=== PATIENT | female | born 1960 | race Hispanic/Latino ===

== ENCOUNTER 2016-10-21 13:25 | Emergency (ER) | payer MEDICARE ==
--- NOTE | 2016-10-21 14:13 | ED.PDOC ---
History of Present Illness - General Chief Complaint: Upper Extremity Injury Stated Complaint: Nubmness and weakness of R arm Time Seen by Provider: 10/21/16 13:48 Source: patient, RN notes reviewed, Vital Signs reviewed Exam Limitations: no limitations - History of Present Illness Initial Comments: Patient reports over the past month she has been having progressively worsening numbness and weakness in her whole Right arm. She is unable to lift her arm and even when she does lift it with her left arm helping she gets pain in her superior shoulder. Denies trauma or injury. Occurred: other - 1 month ago Pain - Upper Extremity: moderate: Shoulder, right, Upper arm, right, Forearm, right, Wrist, right, Hand, right Method of Injury: unknown Improving Factors: nothing Worsening Factors: movement Allergies/Adverse Reactions: Allergies NO KNOWN ALLERGY Allergy (Verified 10/21/16 14:27) Home Medications: Ambulatory Orders Escitalopram [Lexapro] 10 mg PO BEDTIME 12/30/15 Gabapentin [Neurontin] 300 mg PO TID 12/30/15 Promethazine Tab [Phenergan Tablet] 25 mg PO Q6HR PRN #8 tab 12/30/15 Ynbvvtzezloer-Oqyr-Sxlpykvyfo [Fioricet] 1 ea PO Q8H PRN #21 tab 01/23/16 Gabapentin [Neurontin] 300 mg PO Q8HRS #30 cap 10/21/16 Review of Systems - Review of Systems Constitutional: States: no symptoms reported EENTM: States: no symptoms reported Respiratory: States: no symptoms reported Cardiology: States: no symptoms reported Gastrointestinal/Abdominal: States: no symptoms reported Musculoskeletal: States: see HPI Skin: States: no symptoms reported Neurological: States: see HPI, numbness - R upper extremity, weakness - R upper extremity Past Medical History (General) - Patient Medical History Hx Seizures: No Hx Stroke: No Hx Dementia: No Hx Asthma: No Hx of COPD: No Hx Cardiac Disorders: No Hx Congestive Heart Failure: No Hx Pacemaker: No Hx Hypertension: Yes Hx Thyroid Disease: No Hx Diabetes: No - borderline Hx Gastroesophageal Reflux: No Hx Renal Disease: Yes - stones Hx Cancer: No Hx of HIV: No Hx Hepatitis C: No Hx MRSA: No - Vaccination History Hx Influenza Vaccination: Yes - Social History Hx Tobacco Use: Yes Hx Alcohol Use: No Hx Substance Use: No Hx Substance Use Treatment: No Hx Depression: No - Female History Patient : No Family Medical History - Family History Father Living Status: Cause of : cad /mi age 76 Hx Family Asthma: No Hx Family Congestive Heart Failure: No Hx Family Hypertension: Yes Hx Family Stroke: No Hx Cardiac Disease: Yes Hx Family Diabetes: No Hx Family Cancer: No Mother Family History: No Known Living Status: Hx Family Hypertension: Yes Hx Cardiac Disease: Yes Hx Family Diabetes: Yes Hx Family Cancer: Yes - breast Physical Exam - Physical Exam General Appearance: Alert, Comfortable, No apparent distress, Well Developed, Well Groomed, Well Hydrated, Well Nourished Neck: non-tender, full range of motion, supple, normal inspection Shoulder Exam: no evidence of injury, limited ROM - due to weakness on active movement, FROM with assisted movement. 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 Copy, Patient Portal Self Enrollment Instructions: DI for Cervical Radiculopathy Diet: resume usual diet Activity: increase activity as tolerated Referrals: SHELLY CARVER [Primary Care Provider] - 1-5 Days Prescriptions: Gabapentin [Neurontin] 300 mg PO Q8HRS #30 cap Home Medications: Ambulatory Orders Escitalopram [Lexapro] 10 mg PO BEDTIME 12/30/15 Gabapentin [Neurontin] 300 mg PO TID 12/30/15 Promethazine Tab [Phenergan Tablet] 25 mg PO Q6HR PRN #8 tab 12/30/15 Myxxhdumfdnmv-Zhda-Dywiuspjte [Fioricet] 1 ea PO Q8H PRN #21 tab 01/23/16 Gabapentin [Neurontin] 300 mg PO Q8HRS #30 cap 10/21/16 Additional Instructions: Needs EMG of RUE and MRI of C-spine
[2016-10-21 14:27] VITALS: TEMP 99.2
--- NOTE | 2016-10-21 15:55 | RAD ---
PROCEDURE: Cervical Spine,3 Views Clinical History: R arm pain neuropathy Indication: Same as above Comparison: None . Technique: 2.0 views of the cervical spine were done. Findings: There is no loss of vertebral body height. There is reduction in the intervertebral disc space height at C4/C5 level with mild anterior and posterior osteophyte formation seen at this level The prevertebral soft tissues appear unremarkable. The bone mineralization is normal for patient's age and sex. The posterior elements are normal. The craniovertebral junction, tip of the odontoid process, C1/C2 alignment and the C7/T1 interface is intact. The laryngotracheal airway is widely patent. The adjacent soft tissues are radiographically unremarkable. There is no visualization of any radiopaque foreign bodies in the soft tissues. Impression: There is reduction in the intervertebral disc space height at C4/C5 level with mild anterior and posterior osteophyte formation seen at this level Place of interpretation: [id number]. Electronically signed by: Joss Moore MD 10/21/2016 3:54 PM CDT
[2016-10-21] MEDS ORDERED: HYDROcodone 7.5MG/APAP 325MG 1 EA TAB PO ONE (15:56)
--- NOTE | 2016-10-21 16:12 | RAD ---
EXAM DESCRIPTION: Shoulder,Right 2 or More Views CLINICAL HISTORY: R arm pain neuropathy COMPARISON: None FINDINGS: Two views of the right shoulder were submitted. There is no discrete acute fracture or dislocation. Bone mineralization is within normal limits. There is no radiopaque foreign body material IMPRESSION: No acute fracture or dislocation. Electronically signed by: Zana Carpenter MD 10/21/2016 4:11 PM CDT
[2016-10-21 16:31] VITALS: BP 145/93; O2SAT 95
== END 2016-10-21 16:31 | disposition home or self-care (01) ==
LOC: ER 13:25
DX: M54.12 Radiculopathy, cervical region (principal); I10 Essential (primary) hypertension; Z87.442 Personal history of urinary calculi; Z87.891 Personal history of nicotine dependence; Z82.49 Family history of ischemic heart disease and other diseases of the circulatory system; Z79.899 Other long term (current) drug therapy

== ENCOUNTER → 2016-11-08 | Outpatient (CLI) | payer MEDICARE | LOC: LAB.O 10:19 | PROVIDERS: ATTEND Emergency Medicine | DX: I10 Essential (primary) hypertension (principal); R73.9 Hyperglycemia, unspecified; Z13.1 Encounter for screening for diabetes mellitus; Z13.220 Encounter for screening for lipoid disorders ==

== ENCOUNTER → 2016-11-28 | Outpatient (CLI) | payer MEDICARE ==
--- NOTE | 2016-11-29 05:23 | US ---
Procedure: US CAROTID DOPPLER BILATERAL Exam Date: 11/28/2016 Ordering Provider: SHELLY CARVER Clinical Indication: ESSENTIAL (PRIMARY) HYPERTENSION Comparison: None TECHNIQUE : Real-time cerebrovascular ultrasonography was obtained from sternal notch to the angle of the mandible bilaterally utilizing roy scale, color flow and spectral Doppler analysis. Systolic velocity ratios were calculated for internal carotid artery to common carotid artery bilaterally. FINDINGS: RIGHT CAROTID BIFURCATION: No significant atherosclerotic plaque. Peak systolic and end-diastolic velocities in the right internal carotid artery are 76 and 12 cm/s. Internal carotid/common carotid ratio is 0.9. Right vertebral flow is antegrade. LEFT CAROTID BIFURCATION: No significant atherosclerotic plaque. Peak systolic and end-diastolic velocities in the left internal carotid artery are 64 and 11 cm/s. Internal carotid/common carotid ratio is 0.8. Left vertebral flow is antegrade. IMPRESSION: 1. No significant atherosclerotic plaque in each carotid bulb and ICA origin. 2. There is no significant stenosis (less than 15%) at either ICA origin. 3. Bilateral antegrade vertebral artery flow. Electronically signed by: Bowen Serra MD 11/29/2016 5:23 AM CDT
--- NOTE | 2016-11-30 10:15 | MAM ---
History: Well woman exam. Date of exam: 11/28/2016 Services provided: Bilateral full field digital screening mammography. CAD, the images were reviewed with R2 computer aided detection. FINDINGS: Glandular tissue is scattered glandular pattern. No prior exam is currently available for comparison. Segmental microcalcifications right breast 1:00 approximately 6 cm from the nipple and extending approximately 2.9 cm throughout the breast are shown. No architectural distortion or dominant mass. No mammographic abnormality on the left. Suspected intramammary lymph node axillary right breast. IMPRESSION: Incomplete evaluation Recommendation: Additional views right breast with true lateral and spot compression magnification views. BIRAD CATEGORY: 0 INCOMPLETE - Need additional imaging evaluation and/or prior mammograms for comparison. Electronically signed by: Candelaria Santana MD 11/30/2016 10:14 AM CDT
== END ==
LOC: US 10:14
PROVIDERS: ATTEND Emergency Medicine
DX: Z12.31 Encounter for screening mammogram for malignant neoplasm of breast (principal); R20.2 Paresthesia of skin; I10 Essential (primary) hypertension; I77.1 Stricture of artery; R51 Headache; R42 Dizziness and giddiness
CPT/HCPCS: 93880; G0202

== ENCOUNTER 2017-03-06 06:58 | Emergency (ER) | payer MEDICARE ==
--- NOTE | 2017-03-06 07:12 | ED.PDOC ---
History of Present Illness - General Chief Complaint: General Stated Complaint: nausea/vomiting Time Seen by Provider: 03/06/17 07:12 Source: patient, RN notes reviewed Exam Limitations: no limitations - History of Present Illness Initial Comments: Karen Muhammad 56 y/o female stated that she had nausea /vomiting but no diarrhea for the last 5 days and unable to keep anything down.No ill contact , no foreign travel,no abdominal pain. Timing/Duration: other - 5 days Severity: moderate Improving Factors: nothing Worsening Factors: eating Associated Symptoms: denies symptoms Allergies/Adverse Reactions: Allergies NO KNOWN ALLERGY Allergy (Verified 10/21/16 14:27) Home Medications: Ambulatory Orders Gabapentin [Neurontin] 300 mg PO TID 12/30/15 Klonopin 03/06/17 Lisinopril 20 mg PO DAILY 03/06/17 Ondansetron [Ondansetron Odt] 8 mg PO TID PRN #10 tab 03/06/17 Ultram 03/06/17 Review of Systems - Review of Systems Constitutional: States: no symptoms reported EENTM: States: no symptoms reported Respiratory: States: cough, other - sneezing Cardiology: States: no symptoms reported Gastrointestinal/Abdominal: States: no symptoms reported Musculoskeletal: States: no symptoms reported Skin: States: no symptoms reported Neurological: States: no symptoms reported Endocrine: States: no symptoms reported Hematologic/Lymphatic: States: no symptoms reported Past Medical History (General) - Patient Medical History Hx Seizures: No Hx Stroke: No Hx Dementia: No Hx Asthma: No Hx of COPD: No Hx Cardiac Disorders: No Hx Congestive Heart Failure: No Hx Pacemaker: No Hx Hypertension: Yes Hx Thyroid Disease: No Hx Diabetes: No - borderline Hx Gastroesophageal Reflux: No Hx Renal Disease: Yes - stones Hx Cancer: No Hx of HIV: No Hx Hepatitis C: No Hx MRSA: No Surgical History: appendectomy, cholecystectomy, other - c -section.lumbar fusion - Vaccination History Hx Tetanus, Diphtheria Vaccination: No Hx Influenza Vaccination: Yes Hx Pneumococcal Vaccination: No - Social History Hx Tobacco Use: Yes Hx Alcohol Use: No Hx Substance Use: No Hx Substance Use Treatment: No Hx Depression: No - Activities of Daily Living Patient Lives Alone: No - family Grooming Ability: Independent Eating (Feeding) Ability: Independent Toileting Ability: Independent - Female History Patient : No Family Medical History - Family History Father Living Status: Cause of : cad /mi age 76 Hx Family Asthma: No Hx Family Congestive Heart Failure: No Hx Family Hypertension: Yes Hx Family Stroke: No Hx Cardiac Disease: Yes - parents Hx Family Diabetes: Yes - children Hx Family Cancer: Yes - brast-sisters Mother Family History: No Known Living Status: Hx Family Hypertension: Yes Hx Cardiac Disease: Yes Hx Family Diabetes: Yes Hx Family Cancer: Yes - breast Physical Exam - Physical Exam General Appearance: Alert, Comfortable, No apparent distress Eye Exam: bilateral normal Ears, Nose, Throat: hearing grossly normal, normal ENT inspection, normal pharynx Neck: non-tender, full range of motion, supple Respiratory: chest non-tender, lungs clear, normal breath sounds, no respiratory distress Cardiovascular/Chest: normal peripheral pulses, regular rate, rhythm, no edema, no gallop, no murmur Peripheral Pulses: radial,right: 1+, radial,left: 1+ Gastrointestinal/Abdominal: normal bowel sounds, non tender, soft, no organomegaly Back Exam: normal inspection, no vertebral tenderness Extremity: normal range of motion, non-tender, normal inspection Neurologic: no motor/sensory deficits, alert, normal mood/affect, oriented x 3 Skin Exam: normal color, warm/dry Lymphatic: no adenopathy Progress - Progress Progress: 03/06/17 07:30 Vital Signs - 8 hr 03/06/17 07:13 Temperature 95.9 F L Pulse Rate [ 97 H Right Brachial] Respiratory 20 Rate Blood Pressure 134/95 [Right Arm] O2 Sat by Pulse 95 Oximetry - Results/Orders Results/Orders: Laboratory Results - last 24 hr 03/06/17 03/06/17 03/06/17 07:29 07:29 08:16 WBC 6.6 RBC 5.30 Hgb 16.3 H Hct 48.8 H MCV 92.1 MCH 30.7 MCHC 33.4 RDW 13.2 Plt Count 227 MPV 8.8 Absolute Neuts (auto) 4.60 Absolute Lymphs (auto) 1.60 Absolute Monos (auto) 0.30 Absolute Eos (auto) 0.10 Absolute Basos (auto) 0.10 Neutrophils % 69.5 Lymphocytes % 24.0 Monocytes % 3.9 Eosinophils % 1.7 Basophils % 0.9 Sodium 141 Potassium 2.9 L Chloride 105 Carbon Dioxide 23 Anion Gap 15.9 BUN 15 Creatinine 0.66 BUN/Creatinine Ratio 22.7 H Random Glucose 176 H Serum Osmolality 286.4 Calcium 9.8 Total Bilirubin 0.8 AST 13 ALT 11 Alkaline Phosphatase 78 Serum Total Protein 8.0 Albumin 4.6 Globulin 3.4 Albumin/Globulin Ratio 1.4 Lipase 34 Urine Color Yellow Urine Appearance Clear Urine pH 7.0 Ur Specific [place] 1.015 Urine Protein Negative Urine Glucose (UA) Negative Urine Ketones 15 H Urine Blood Trace-intact H Urine Nitrite Negative Urine Bilirubin Negative Urine Urobilinogen 0.2 Ur Leukocyte Esterase Trace H Urine RBC 1-3 Urine WBC 0-1 Ur Epithelial Cells 0-1 Urine Bacteria Rare - EKG/XRAY/CT XRAY: abdomen - no acute abnormality;normal gas pttern Departure - Departure Clinical Impression: Nausea & vomiting Qualifiers: Vomiting type: unspecified Vomiting Intractability: unspecified Qualified Code( s): R11.2 - Nausea with vomiting, unspecified Time of Disposition: :31 Disposition: Discharge to Home or Self Care Condition: Good Instructions: Nausea and Vomiting-Adult Diet: bland diet, other - AVOID GREASY SPICY FOODS UNTIL BETTER;RETURN TO [facility] ROOM NEEDED Referrals: SHELLY CARVER [Primary Care Provider] - 1-2 Weeks Prescriptions: Ondansetron [Ondansetron Odt] 8 mg PO TID PRN #10 tab PRN Reason: Nausea Home Medications: Ambulatory Orders Gabapentin [Neurontin] 300 mg PO TID 12/30/15 Klonopin 03/06/17 Lisinopril 20 mg PO DAILY 03/06/17 Ondansetron [Ondansetron Odt] 8 mg PO TID PRN #10 tab 03/06/17 Ultram 03/06/17 Additional Instructions: RETURN TO EMERGENCY ROOM NEEDED;Follow up with primary md 03/07/2017 as needed call for appointment
[2017-03-06] MEDS ORDERED: LACTATED RINGERS 1,000 ML IVS ONE (07:13)
[2017-03-06] MEDS ORDERED: PROMETHAZINE HCL INJ 25 MG/ML VIAL IM ONE (07:37)
--- NOTE | 2017-03-06 08:21 | RAD ---
EXAM DESCRIPTION: Chest,1 View CLINICAL HISTORY: cough/sneezing FINDINGS/ IMPRESSION: Normal heart size. Mildly tortuous aorta. No edema, infiltrates or effusions. No acute bony abnormality Electronically signed by: Charlie Hendrickson MD 03/06/2017 8:20 AM CDT
--- NOTE | 2017-03-06 08:23 | RAD ---
EXAM DESCRIPTION: Abdomen, 2 views CLINICAL HISTORY: nausea/vomiting FINDINGS/ IMPRESSION: Bowel gas pattern normal. No evidence of pneumatosis or free intraperitoneal air No organomegaly or obvious abdominal mass lesion. Calcification overlies the upper abdomen, probably costochondral calcification. There are stimulator wires from previous lumbar spine fusion surgery Osteopenia without acute bony abnormality Electronically signed by: Chalrie Hendrickson MD 03/06/2017 8:22 AM CDT
[2017-03-06 08:30] VITALS: O2SAT 96
[2017-03-06 09:15] VITALS: BP 146/75; TEMP 97.6
== END 2017-03-06 09:46 | disposition home or self-care (01) ==
LOC: ER 06:58
DX: R11.2 Nausea with vomiting, unspecified (principal); I10 Essential (primary) hypertension; Z87.891 Personal history of nicotine dependence; Z87.442 Personal history of urinary calculi; Z79.899 Other long term (current) drug therapy
CPT/HCPCS: 36415; 71010; 74010; 80053; 81001; 83690; 85025; J2060; J2550; J7120

== ENCOUNTER → 2017-11-13 | Outpatient (CLI) | payer MEDICARE ==
--- NOTE | 2017-11-13 13:16 | RAD ---
EXAM DESCRIPTION: Chest,2 Views CLINICAL HISTORY: HYPERTENSION COMPARISON: March 06, 2017 TECHNIQUE: PA/lateral FINDINGS: The lungs are well expanded and clear. No infiltrates or effusions or masses are noted. The heart is normal in size and shape with no evidence of vascular congestion. The agapito and mediastinum demonstrate normal contours. The bony spine and chest wall is normal for age in appearance. IMPRESSION: Normal chest, two views Electronically signed by: Charlie Munoz MD 11/13/2017 1:15 PM CDT
== END | disposition home or self-care (01) ==
LOC: RAD 09:48
PROVIDERS: ATTEND Emergency Medicine
DX: I10 Essential (primary) hypertension (principal); Z13.220 Encounter for screening for lipoid disorders; F41.9 Anxiety disorder, unspecified; Z13.1 Encounter for screening for diabetes mellitus

== ENCOUNTER → 2017-12-05 | Outpatient (CLI) | payer MEDICARE ==
--- NOTE | 2017-12-05 16:28 | MAM ---
EXAM DESCRIPTION: 3D Screening BILATERAL : Digital Mammography. CLINICAL HISTORY: 56 years Female SCREENING . No complaints. Sister with breast cancer. Postmenopausal. No HRT. Did not return for diagnostic mammography follow-up of the right breast after BI-RADS Category 0 recommendation November 2016.. COMPARISON: 2-D digital screening bilateral study 11/28/2016. Report from prior examination also reviewed. TECHNIQUE: Bilateral CC and MLO projection full-field images, 3-D tomosynthesis digital mammographic technique. Also bilateral synthesized CC/ MLO full-field images. CAD not utilized. FINDINGS: The breast parenchymal density pattern is: Scattered areas of fibroglandular density. No skin thickening or nipple retraction bilateral solitary microcalcifications. Linear calcifications are visualized at the 1200 clock position of the middle third of the right breast, approximately 5 cm from the nipple. These are associated with fibroglandular tissues but no definite mass. Well demonstrated with digital orthogonal magnification views. This could represent fatty necrosis. No focal, stellate mass or density, focal asymmetry , and no suspicious microcalcifications bilaterally. Stable mammograms compared to prior study, taking into account differences in mammographic technique IMPRESSION: BI-RADS CATEGORY: 2 - BENIGN FINDINGS. FOLLOW UP: Routine digital bilateral screening, one year interval from November 2017. Written communication explaining the IMPRESSION and follow-up, will be mailed to the patient and referring health care provider. According to the [employer], yearly mammograms are recommended starting at age 40 and continuing as long as a woman is in good health. Any breast change noted on a breast self-exam should be reported promptly to the patient's healthcare provider. Breast MRI is recommended for women with an approximately 20-25% or greater lifetime risk of breast cancer, including women with a strong family history of breast or ovarian cancer and women who have been treated for Hodgkin's disease. A negative mammographic report should not delay tissue diagnosis in patients with significant clinical history or physical findings. Extremely dense breast tissue limits the sensitivity of digital mammography. Electronically signed by: Felipe Beth MD 12/05/2017 4:26 PM CDT
== END ==
LOC: MAMMO 08:33
PROVIDERS: ATTEND Emergency Medicine
DX: Z12.31 Encounter for screening mammogram for malignant neoplasm of breast (principal)

== ENCOUNTER → 2018-11-01 | Outpatient (CLI) | payer MEDICARE ==
--- NOTE | 2018-11-01 15:33 | RAD ---
EXAM DESCRIPTION: Hand,Right 3 Views: CR/DR/XR CLINICAL HISTORY: 57 years Female M79.641 COMPARISON: None. TECHNIQUE: 3 VIEWS right hand AP. Lateral. Oblique. FINDINGS: Decreased bone density. Decreased IP joint spaces and the metacarpal phalangeal joint spaces. Periarticular bone density loss. No significant marginal erosions or spurs. No fracture or dislocation. No abnormal radiodense objects in the soft tissues or joint spaces. IMPRESSION: Overall bone density is decreased, particularly in the periarticular regions. Minimal joint space narrowing. No acute bony abnormality. Electronically signed by: Felipe Beth MD 11/01/2018 3:30 PM CDT
== END ==
LOC: RAD 08:56
PROVIDERS: ATTEND Orthopaedic Surgery
DX: Z01.818 Encounter for other preprocedural examination (principal); M79.641 Pain in right hand

== ENCOUNTER 2018-11-19 05:38 | Day surgery (SDC) | payer MEDICARE ==
--- NOTE | 2018-11-16 13:58 | HP ---
CHIEF COMPLAINT: Right thumb pain. HISTORY OF PRESENT ILLNESS: Karen is a 57 year-old female with a history of pain in the right thumb. She localizes the pain to the A-1 jennifer of the thumb. She has had no trauma necessarily related to that. Denies any radiation of pain or neurologic symptoms. Because of the ongoing pain she has requested operative intervention for trigger thumb release. After discussing the risks, benefits, and alternatives to that she has given informed consent for that. PAST SURGICAL HISTORY: 1. Multiple sections. 2. Cholecystectomy. 3. Appendectomy. CURRENT MEDICATIONS: 1. Gabapentin. 2. Valium. 3. Excedrin. 4. Benadryl. 5. Lisinopril. ALLERGIES: NO KNOWN DRUG ALLERGIES. CODE STATUS: FULL CODE. IMMUNIZATIONS: Up to date. FAMILY HISTORY: None pertinent to today's complaints. SOCIAL HISTORY: She does not drink, smoke or use any illicit drugs. REVIEW OF SYSTEMS: Negative except as indicated in the History of Present Illness. PHYSICAL EXAMINATION: VITAL SIGNS: Blood pressure 156/99, pulse 69, height 5' 5", weight 185. MENTAL STATUS: The patient is awake, alert, and is able to give a good history and participate in the physical. The patient is oriented to person, place and time. SKIN: Normal tone and turgor. MUSCULOSKELETAL: She is very tender over the A-1 jennifer and has palpable clicking. She has intact sensation throughout the extremity. It is warm and well perfused. She had difficulty with range of motion, although does maintain full range of motion. ASSESSMENT: 1. Trigger thumb. PLAN: The plan at this point is for trigger thumb release. We have discussed the risks, benefits, and alternatives to that and she has given informed consent for that. #[id number]
[2018-11-19] MEDS ORDERED: ceFAZolin SODIUM 1 GM VIAL ONE (07:15)
[2018-11-19] MEDS ORDERED: LACTATED RINGERS 1,000 ML ONE (07:15)
[2018-11-19] MEDS ORDERED: SODIUM CHL 0.9% 50ML MIN-BAG+ 50 ML IVPB ONE (07:15)
[2018-11-19] MEDS ORDERED: LIDOCAINE 1% 10 ML VIAL INJ ONE ×2 (08:16→10:00)
[2018-11-19] MEDS ORDERED: BUPIVACAINE 0.25% INJ 30 ML VIAL INJ ONE (08:16)
[2018-11-19] MEDS ORDERED: PROPOFOL 200 MG/20 ML VIAL IV ONE (10:00)
[2018-11-19] MEDS ORDERED: fentaNYL CITRATE INJ 50 MCG/ML AMP ONE (10:57)
[2018-11-19] MEDS: ceFAZolin SODIUM 1 GM VIAL ONE ×2 (11:01→11:13)
[2018-11-19] MEDS: VANCOMYCIN HCL INJ 1,000 MG VIAL IVPB ONE ×2 (11:01→11:13)
[2018-11-19] MEDS ORDERED: MIDAZOLAM INJ 2 MG/2 ML VIAL ONE (11:07)
[2018-11-19 14:21] VITALS: BP 138/93; TEMP 97.2; O2SAT 100
--- NOTE | 2018-11-19 20:41 | CONS ---
DATE OF CONSULTATION: 11/19/18 SUPERVISING PHYSICIAN: Darian Novak M.D. CHIEF COMPLAINT: Fall status post outpatient procedure. HISTORY OF PRESENT ILLNESS: Ms. Flores is a 57 year-old female that had an elective right trigger thumb release on 11/19/[address] Negro as an outpatient in Ambulatory Services. She had MAC anesthesia and did well intraoperatively. She was seen in PACU and while attempting to get out of bed to go to the bathroom she near syncopal episode and was assisted to the floor by the nurse. I was then asked to see the patient and examine for any acute injuries or other concerns. The patient was seen on the floor in supine position in no acute distress. She was slightly confused but easily reoriented. After talking to the nurse, the patient was actually assisted to the floor and at that time was just unable to get up, and appeared to be slightly confused. She was then assisted by myself and the PACU nurse back to the bed where she was found to be once again reoriented and in no acute distress with no acute injuries noted. There was also a finger blood sugar taken that was noted to be 137. PAST MEDICAL HISTORY: 1. Acute anxiety disorder. 2. Hypertension. PAST SURGICAL HISTORY: 1. Multiple sections. 2. Cholecystectomy, 3. Appendectomy. 4. Right trigger thumb release on 11/19/18. CURRENT MEDICATIONS: Reviewed in preoperative chart. ALLERGIES: NO KNOWN DRUG ALLERGIES. FAMILY HISTORY: Not pertinent to today's complaint. SOCIAL HISTORY: The patient resides in [place], [place]. She is . She does not drink alcohol or use tobacco. PHYSICAL EXAMINATION: VITAL SIGNS: Temperature 97.1, pulse 73, blood pressure 144/98, respirations 16, satting 95% on room air. GENERAL: The patient was found supine on the floor, slightly confused but alert and appeared to be in more of a panic condition. Once she was reoriented and assisted back to the bed, the patient was back to her baseline mental status with her sister who was at the bedside as well as the nurse. No additional exam was performed other than a basic assessment. There was no obvious trauma. She was moving all extremities ad herbert. She was oriented to herself, place and time. CHEST: Sounds were clear. EXTREMITIES: Atraumatic with a bandage in place on the right thumb. NEUROLOGIC: She is alert and oriented times three. Cranial nerves II-XII are grossly intact. Facial features were symmetrical. Extraocular movements are within normal limits. There were no obvious focal or neuromotor deficits. LABORATORY: Finger stick blood sugars at 137. No other labs or procedures were done during exam. ASSESSMENT: 1. Assisted fall after near syncopal episode with no obvious trauma status post recent MAC anesthesia plus trigger thumb procedure with no acute injuries noted. 2. Anxiety with acute panic attack likely resulting in #1 complicated by post anesthesia and medication. 3. Trigger thumb release as noted current procedure. PLAN: The patient was placed back in her bed in PACU. She was accompanied by the nurse. She was reoriented. She was placed on the monitor and continued with recovery through PACU as standard procedure. She was advised to followup with her primary care provider and Dr Negro as instructed. I discussed with the nurse that they needed to contact Anesthesia and notify Dr. Negro that the patient had a same level assisted fall but appeared to have no acute injuries, and was alert and stable. The patient was showing to be stable to continue with recovery and again advised to followup with her primary care provider. If any other concerns were noted by the nurses during recovery to let Anesthesia know and if need to we could place the patient in observation for short stay observation if needed. #[id number] [facility]
--- NOTE | 2018-11-20 11:44 | PN ---
DATE: 11/20/18 Ms. Flores underwent successful trigger thumb release. However, after surgery, she did have a syncopal episode. She was seen and her vital signs were stable and she met discharge criteria. Apparently, she had not taken her hypertension medications or any of her other medications because her sister said that whenever she does not have the money for the medications, she simply does not get them filled. She had to go to Urgent Care apparently after discharge. I tried to contact Dr. Smallwood who did not return the phone call to check her status. I was able to speak with Ms. Flores's sister about 3 o'clock on 11/19/18. She informed me that Ms. Flores was doing well and she was alert, eating and not having any issues. I called her again at about 7 o'clock on 11/19/18 and she had subsequently taken her medication and was doing well. We contacted her again on 11/20/18 and, again, she had been doing well without any issues. I did talk to her sister about her medication issues and asked her to relay to Ms. Flores if she ever had any problems affording her medicine like that, that we would assist her in any way we could. She is set to followup with us tomorrow on 11/21/18 for her routine postoperative visit. We did talk to her about returning immediately should she have any change in her condition prior to her followup. #[id number] [facility]
--- NOTE | 2018-11-20 11:47 | OP ---
DATE OF PROCEDURE: 11/19/18 PREOPERATIVE DIAGNOSIS: 1. Right trigger thumb. POSTOPERATIVE DIAGNOSIS: 1. Right trigger thumb. PROCEDURE: 1. Trigger thumb release. SURGEON: Gonzalez Negro MD. SUBSTATION OPERATOR CHIEF: Felipe Camacho CST, SA-C. ANESTHESIA: Local with sedation. COMPLICATIONS: None. FINDINGS: Triggering at the A1 jennifer of the thumb. INDICATION: Ms. Flores has a long history of pain in the thumb associated with triggering. She has failed conservative measures and because of that has requested operative intervention. After discussing the risks, benefits and alternatives to operative therapy, informed consent was obtained. PROCEDURE: The patient was brought to the Operating Room and placed in the supine position. Sedation was administered and local anesthetic was injected into the operative area. Following injection, the arm was sterilely prepped and draped. A transverse incision was made directly overlying the A1 jennifer of the triggering digit and blunt dissection was carried down to the jennifer while protecting the digital nerves. After identification of the jennifer, the jennifer was transected and a Jefferson elevator was passed both proximally and distally to ensure complete release. The finger was flexed and extended and there was no evidence of locking or clicking. The wound was thoroughly irrigated and closed with Nylon suture. A sterile dressing was placed and the patient was taken to the Day Surgery Unit. POSTOPERATIVE PLAN: The patient has been encouraged to do range of motion of the digits and will followup with us in about two days. #[id number] [facility]
== END 2018-11-19 11:47 | disposition home or self-care (01) ==
LOC: AMB 05:38
PROVIDERS: ATTEND Orthopaedic Surgery
DX: M65.311 Trigger thumb, right thumb (principal); I10 Essential (primary) hypertension; F41.9 Anxiety disorder, unspecified; Z90.49 Acquired absence of other specified parts of digestive tract; Z79.899 Other long term (current) drug therapy
CPT/HCPCS: 01810; 26055; 36416; 80307; 82948; 93005; J0690; J2250; J3010; J3370; J3490; J7050; J7120

== ENCOUNTER → 2018-11-27 | Outpatient (CLI) | payer MEDICARE ==
--- NOTE | 2018-11-28 06:24 | CT ---
Procedure: CT ABDOMEN PELVIS WITHOUT THEN WITH IV CONTRAST Exam Date: 11/27/2018 Ordering Provider: HUMBLE LEMON Clinical Indication: GROSS HEMATURIA, RENAL CALCULI Comparison: 03/06/2017 KUB TECHNIQUE: 5 mm images were taken through the abdomen and pelvis before and after the administration of nonionic intravenous contrast material. Delayed images also obtained. Oral contrast was not administered. Coronal and sagittal reformatted images were generated. This exam was performed according to our departmental dose optimization program which includes use of automated exposure control, adjustment of the mA and/or kV according to patient size and/or use of iterative reconstruction technique. FINDINGS: Lower chest: Small hiatal hernia. Abdomen: Liver and biliary system: No liver lesions. No biliary ductal dilatation. Prior cholecystectomy. Spleen: Unremarkable Pancreas: Fatty infiltration Adrenal glands: Unremarkable Kidneys, ureters, bladder: There are a few punctate stones in the left kidney. There are a few stones in the right kidney largest measuring 1 cm, others are punctate. No hydronephrosis in either kidney. No suspicious renal lesions. Renal collecting systems and ureters are unremarkable. Urinary bladder is unremarkable. Lymph nodes: No lymphadenopathy Retroperitoneum, abdominal wall, peritoneal cavity: No ascites. No free air. Vessels: No abdominal aortic aneurysm. Bowel: No bowel obstruction. Fatty infiltration of the colonic submucosa is nonspecific but most commonly seen with obesity and inflammatory bowel disease. No findings to suggest acute appendicitis. Pelvic organs: Unremarkable Bones: No destructive bony lesions. Multilevel spondylosis. Postsurgical changes in the lumbar spine. IMPRESSION: 1. Bilateral nephrolithiasis without hydronephrosis. 2. Fatty infiltration of the colonic submucosa is nonspecific but most commonly seen with obesity and inflammatory bowel disease. 3. Prior cholecystectomy. Electronically signed by: Bowen Serra MD 11/28/2018 6:22 AM CDT
== END ==
LOC: RAD 14:56
PROVIDERS: ATTEND Urology
DX: N20.0 Calculus of kidney (principal); Z90.49 Acquired absence of other specified parts of digestive tract

== ENCOUNTER → 2019-03-12 | Outpatient (CLI) | payer MEDICARE ==
--- NOTE | 2019-03-13 08:47 | MRI ---
EXAM DESCRIPTION: Cervical Spine: MRI. CLINICAL HISTORY: 58 years Female RADICULOPATHY CERVICAL REGION pain with turning head side to side COMPARISON: 3 view cervical spine radiographs 10/21/2016. TECHNIQUE: Multiplanar, high-field MRI, multiple sequences, non-contrast Cervical spine. FINDINGS: C2-C3: Normal signal and disc but disc space appears rudimentary. In addition, the right facet joint is partially fused. Canal and the neural foramina are patent. C3-C4: Disc desiccation with disc space preserved. Left uncinate spur. Left facet hypertrophic arthrosis. Borderline mild left neural foraminal stenosis. Canal and left neuroforamen are patent. C4-C5: Anterior disc bulge which is desiccated with endplate ridging. Moderate disc space loss. Trace retrolisthesis. Posterior disc osteophyte bulge abutting the cord. Borderline central canal stenosis. Right side disc osteophyte complex encroaching on the neural foramen which is stenotic. Right uncinate spur. Left uncinate spur and minimal left facet hypertrophic arthrosis with neural foraminal stenosis. C5-C6: Disc desiccation with disc space preserved. Minimal anterior bulge. Posterior midline bulge with hyperintense T2 weighted signal indicating an annular fissure abutting the cord. Mild to moderate canal narrowing. Bilateral uncinate spurs bilateral mild hypertrophic facet arthrosis. Bilateral mild neural foraminal narrowing. Normal signal in the remaining discs with no bulging. Disc spaces preserved. Canal and neural foramina are patent. Facet joints are unremarkable Spinal alignment C3-C5 kyphosis.. No cord compression or cord edema. Atlantoaxial joint with minimal arthrosis.. Base of the cerebellar tonsils is above the foramen magnum. Paravertebral soft tissues are negative. Vertebral bodies are not compressed at any level. Otherwise normal marrow signal in the remaining vertebral bodies and the posterior elements. IMPRESSION: 1. 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 This can be a source of rotational neck pain. 2. Borderline mild left neural foraminal stenosis at C3-4. Hypertrophic left facet and left uncinate spur. Correlate for left C4 radiculopathy. 3. Trace retrolisthesis C4-C5. Moderate disc space loss and spondylosis. Right side disc osteophyte complex encroaching on the right neural foramen which is stenotic. Left uncinate spur and facet hypertrophy causing left neural foraminal stenosis. Correlate for bilateral C5 radiculopathy. 4. Posterior midline C5-C6 disc bulge with annular fissure. Bilateral mild neural foraminal narrowing and canal narrowing. Electronically signed by: Felipe Beth MD 03/13/2019 8:46 AM CDT
== END ==
LOC: MRI 13:09
PROVIDERS: ATTEND Emergency Medicine
DX: M47.22 Other spondylosis with radiculopathy, cervical region (principal); M48.02 Spinal stenosis, cervical region; M43.12 Spondylolisthesis, cervical region; M50.01 Cervical disc disorder with myelopathy, high cervical region; M50.022 Cervical disc disorder at C5-C6 level with myelopathy

== ENCOUNTER → 2019-03-18 | Outpatient (CLI) | payer MEDICARE ==
--- NOTE | 2019-03-21 08:23 | MAM ---
EXAM DESCRIPTION: 3D Screening BILATERAL : Digital Mammography. CLINICAL HISTORY: 58 years Female SCREEN . No complaints. Sister with breast cancer. No personal history of breast cancer. Childbirth. Postmenopausal. No HRT. Lifetime risk of developing breast cancer (Tyrer-Cuzick model)(%): 7.8. COMPARISON: Bilateral screening digital breast tomosynthesis 12/05/2017. 2-D digital screening bilateral mammography 11/28/2016. . TECHNIQUE: Bilateral CC and MLO projection full-field images, digital tomosynthesis mammographic technique. Bilateral digital 2-D full-field MLO images. CAD not available for tomosynthesis or 2-D images. FINDINGS: The breast parenchymal density pattern is: Scattered areas of fibroglandular density. No skin thickening or nipple retraction. Bilateral axillary lymph nodes. Bilateral solitary microcalcifications. Again noted are linear calcifications of varying angles in the 12:00 position of the middle third of the right breast 5 cm from the nipple. Not associated with soft tissue mass. Stable since the prior study, probably fat necrosis. No new focal, stellate mass or density, focal asymmetry , and no suspicious microcalcifications bilaterally. Stable mammograms compared to prior study. IMPRESSION: Benign exam. BIRAD CATEGORY: 2 BENIGN FINDINGS. RECOMMENDATIONS: FOLLOW UP: Routine digital bilateral mammographic screening, one year interval from March 2019. Written communication explaining the IMPRESSION and follow-up, will be mailed to the patient and referring health care provider. The FINDINGS and the FOLLOW-UP plan were reviewed in person with the patient after the examination. According to the [employer], yearly mammograms are recommended starting at age 40 and continuing as long as a woman is in good health. Any breast change noted on a breast self-exam should be reported promptly to the patient's healthcare provider. Breast MRI is recommended for women with an approximately 20-25% or greater lifetime risk of breast cancer, including women with a strong family history of breast or ovarian cancer and women who have been treated for Hodgkin's disease. A negative mammographic report should not delay tissue diagnosis in patients with significant clinical history or physical findings. Extremely dense breast tissue limits the sensitivity of digital mammography. Electronically signed by: Felipe Beth MD 03/21/2019 8:21 AM CDT
== END ==
LOC: MAMMO 08:00
PROVIDERS: ATTEND Emergency Medicine
DX: Z12.31 Encounter for screening mammogram for malignant neoplasm of breast (principal)

== ENCOUNTER 2019-06-23 11:23 | Emergency (ER) | payer MEDICARE ==
--- NOTE | 2019-06-23 12:38 | RAD ---
EXAM DESCRIPTION: Abdomen Series CLINICAL HISTORY: 58 years Female, rlq pain 3 days with some nausea COMPARISON: March 06, 2017 FINDINGS: The cardiomediastinal silhouette is unremarkable. There is no airspace consolidation or pleural effusion. There is no free subdiaphragmatic gas or intra-abdominal air fluid level. There is a moderate amount of stool and gas scattered throughout the colon, but the bowel gas pattern is nonobstructive. Calcification in the right mid/upper abdomen probably renal. Faint left-sided nephrolithiasis. Cholecystectomy clips are faintly visualized. No acute bone lesion.. IMPRESSION: Nephrolithiasis, but no ureteral calculus, obstruction or other acute abnormality in the abdomen or pelvis to explain patient's symptoms. If symptoms persist or worsen, CT should be considered. Electronically signed by: Adan Skinner MD 06/23/2019 12:37 PM [facility]
--- NOTE | 2019-06-23 13:01 | CT ---
EXAM DESCRIPTION: Abdoment/Pelvis w/o Contrast CLINICAL HISTORY: rlq pain 3 days COMPARISON: November 27, 2018 TECHNIQUE: Noncontrast transaxial CT images of the abdomen and pelvis are obtained. This exam was performed according to our departmental dose-optimization program, which includes automated exposure control, adjustment of the mA and/or kV according to patient size and/or use of iterative reconstruction technique . FINDINGS: Visualized lung bases show mild interstitial thickening which could be related to atelectasis and poor inspiratory effort. Given the limitations of a noncontrast exam the liver, spleen, pancreas, and adrenal glands are unremarkable. Mild fatty replacement of the pancreas. Surgical clips from cholecystectomy. Mild vascular calcifications. Multiple nonobstructing bilateral calcifications are seen. The largest in the midpole right kidney measures 1.3 cm. No ureteral calcification or obstruction. Urinary bladder is poorly distended and unremarkable. Uterus and ovaries are stable and unremarkable. The appendix is not identified. No secondary signs of acute appendicitis. Stomach is poorly distended but unremarkable. Small hiatal hernia seen. No small bowel obstruction or bowel wall thickening. Images are mildly degraded by patient motion artifact. Colon shows no acute findings. No significant diverticular disease. No pathologically enlarged abdominal or retroperitoneal lymphadenopathy. Osseous structures show no aggressive bony lesions. Several nonaggressive-appearing sclerotic lesions are seen in the pelvis. Posterior lateral bone graft from L3 through S1 is seen without significant solid fusion at this time. Moderate disc degenerative changes and facet arthropathy of the lower thoracic and lumbar spine is seen. IMPRESSION: Nonobstructing bilateral nephrolithiasis is again seen. No acute findings on noncontrast CT of the abdomen and pelvis. Electronically signed by: Shashi Monroe MD 06/23/2019 12:59 PM [facility]
[2019-06-23] MEDS ORDERED: CIPROFLOXACIN 500 MG TAB PO ONE (13:23)
--- NOTE | 2019-06-23 13:25 | ED.PDOC ---
History of Present Illness - General Chief Complaint: Abdominal Pain Time Seen by Provider: 06/23/19 11:25 Source: patient Exam Limitations: no limitations - History of Present Illness Initial Comments: the patient is a 58-year-old female presenting to the emergency room secondary to right abdominal pain that has localized more to the right lower quadrant. It is lasting about 3 days. No vaginal discharge. No abnormal bleeding. No constipation or diarrhea. No fever. No history of diverticulitis. The patient believes that her appendix has already been removed and her gallbladder has been removed. No syncope or near syncope. She does have a little bit of nausea. It is worse with movement. Timing/Duration: other - 3 days Severity: moderate Improving Factors: immobilization Worsening Factors: eating, movement Associated Symptoms: denies symptoms Allergies/Adverse Reactions: Allergies NO KNOWN ALLERGY Allergy (Verified 10/21/16 14:27) Home Medications: Ambulatory Orders Gabapentin [Neurontin] 600 mg PO TID 12/30/15 Lisinopril 20 mg PO DAILY 03/06/17 Aspirin/Acetaminophen/Caffeine [Excedrin Migraine] 1 tab PO Q6HRS 11/15/18 diazePAM [Valium] 2 mg PO DAILY 11/15/18 diphenhydrAMINE HCL [Benadryl] 25 mg PO Q6HRS 11/15/18 Ciprofloxacin [Cipro] 500 mg PO BID #10 tab 06/23/19 Review of Systems - Review of Systems Constitutional: States: no symptoms reported EENTM: States: no symptoms reported Respiratory: States: no symptoms reported Cardiology: States: no symptoms reported Gastrointestinal/Abdominal: States: abdominal pain, nausea Genitourinary: States: no symptoms reported Musculoskeletal: States: no symptoms reported Skin: States: no symptoms reported Neurological: States: no symptoms reported Endocrine: States: no symptoms reported All other Systems: No Change from Baseline Past Medical History (General) - Patient Medical History Hx Seizures: No Hx Stroke: No Hx Dementia: No Hx Asthma: No Hx of COPD: No Hx Cardiac Disorders: No Hx Congestive Heart Failure: No Hx Pacemaker: No Hx Hypertension: Yes Hx Thyroid Disease: No Hx Diabetes: Yes - FSBS 107 Hx Gastroesophageal Reflux: No Hx Renal Disease: Yes - stones Hx Cancer: No Hx of HIV: No Hx Hepatitis C: No Hx MRSA: No - Vaccination History Hx Tetanus, Diphtheria Vaccination: No Hx Influenza Vaccination: Yes Hx Pneumococcal Vaccination: No - Social History Hx Tobacco Use: Yes Hx Alcohol Use: No Hx Substance Use: No Hx Substance Use Treatment: No Hx Depression: No - Female History Patient : No Family Medical History - Family History Father Living Status: Cause of : cad /mi age 76 Hx Family Asthma: No Hx Family Congestive Heart Failure: No Hx Family Hypertension: Yes Hx Family Stroke: No Hx Cardiac Disease: Yes - parents Hx Family Diabetes: Yes - children Hx Family Cancer: Yes - brast-sisters Mother Family History: No Known Living Status: Hx Family Hypertension: Yes Hx Cardiac Disease: Yes Hx Family Diabetes: Yes Hx Family Cancer: Yes - breast Physical Exam - Physical Exam General Appearance: Alert, Comfortable, No apparent distress Eye Exam: bilateral normal Ears, Nose, Throat: hearing grossly normal, normal ENT inspection, normal pharynx Neck: full range of motion, supple Respiratory: lungs clear, normal breath sounds, no respiratory distress, no accessory muscle use Cardiovascular/Chest: normal peripheral pulses, regular rate, rhythm, no edema Peripheral Pulses: radial,right: 2+, radial,left: 2+, dorsalis pedis,right: 2+, dorsalis pedis,left: 2+ Gastrointestinal/Abdominal: soft, other - right lower quadrant discomfort palpation no definite peritoneal signs and no rebound. Rectal Exam: deferred Back Exam: no CVA tenderness, no vertebral tenderness, other - no obvious palpable mass or hernia. 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 Telemetry shows a normal sinus rhythm. Progress - Progress Progress: 06/23/19 13:28 the patient is 58-year-old female presenting with right lower quadrant pain for the last 3 days. Source of this is not entirely certain. Laboratory work and CT scan are reassuring. It is possible that the patient may have passed a small kidney stone within the last few days as she does have some hematuria and mild leukocytosis. The patient will be placed on ciprofloxacin for a mild cystitis. It is also possible that this may be primarily musculoskeletal in nature. If that is the case then it should improve over the next week on its own. The patient is to follow back up with her primary care doctor towards the end of the week. ER warnings were given. edith montesinos [phone] - Results/Orders Results/Orders: CT of abdomen and pelvis without contrast shows no acute pathology. No obvious appendicitis or diverticulitis. No obstruction. No ileus. No perforation. No obvious hernia. No evidence of any pelvic fracture. Laboratory Tests 06/23/19 06/23/19 06/23/19 11:47 11:47 11:47 WBC 7.1 RBC 4.79 Hgb 14.8 Hct 44.2 MCV 92.3 MCH 31.0 MCHC 33.6 RDW 13.0 Plt Count 201 MPV 8.9 Absolute Neuts (auto) 5.20 Absolute Lymphs (auto) 1.30 Absolute Monos (auto) 0.30 Absolute Eos (auto) 0.10 Absolute Basos (auto) 0.00 Neutrophils % 73.9 Lymphocytes % 18.9 L Monocytes % 4.9 Eosinophils % 1.6 Basophils % 0.7 Sodium 138 Potassium 3.6 Chloride 104 Carbon Dioxide 23 Anion Gap 14.6 BUN 17 Creatinine 0.65 BUN/Creatinine Ratio 26.2 H Random Glucose 142 H Serum Osmolality 279.6 Calcium 9.7 Total Bilirubin 0.5 AST 14 ALT 15 Alkaline Phosphatase 94 Serum Total Protein 7.3 Albumin 4.3 Globulin 3.0 Albumin/Globulin Ratio 1.4 Amylase 24 L Lipase 23 Urine Color Urine Appearance Urine pH Ur Specific [place] Urine Protein Urine Glucose (UA) Urine Ketones Urine Blood Urine Nitrite Urine Bilirubin Urine Urobilinogen Ur Leukocyte Esterase Urine RBC Urine WBC Ur Epithelial Cells Amorphous Sediment Urine Bacteria Urine Mucus Urine HCG, Qual Negative 06/23/19 11:47 WBC RBC Hgb Hct MCV MCH MCHC RDW Plt Count MPV Absolute Neuts (auto) Absolute Lymphs (auto) Absolute Monos (auto) Absolute Eos (auto) Absolute Basos (auto) Neutrophils % Lymphocytes % Monocytes % Eosinophils % Basophils % Sodium Potassium Chloride Carbon Dioxide Anion Gap BUN Creatinine BUN/Creatinine Ratio Random Glucose Serum Osmolality Calcium Total Bilirubin AST ALT Alkaline Phosphatase Serum Total Protein Albumin Globulin Albumin/Globulin Ratio Amylase Lipase Urine Color Yellow Urine Appearance Clear Urine pH 5.0 Ur Specific [place] >= 1.030 Urine Protein 30 Urine Glucose (UA) Negative Urine Ketones Negative Urine Blood Large H Urine Nitrite Negative Urine Bilirubin Negative Urine Urobilinogen 0.2 Ur Leukocyte Esterase Negative Urine RBC 10-20 H Urine WBC 3-5 H Ur Epithelial Cells 3-5 Amorphous Sediment 2+ Urine Bacteria 2+ H Urine Mucus Large Urine HCG, Qual Departure - Departure Clinical Impression: Cystitis, Right lower quadrant pain Disposition: Discharge to Home or Self Care Condition: Fair Departure Forms: ED Discharge - Pt. Copy, Patient Portal Self Enrollment Instructions: DI for Abdominal Pain-Adult, Urinary Tract Infections in Adults Diet: bland diet Activity: increase activity as tolerated Referrals: SHELLY CARVER [Primary Care Provider] - 1-2 Weeks Prescriptions: Ciprofloxacin [Cipro] 500 mg PO BID #10 tab Home Medications: Ambulatory Orders Gabapentin [Neurontin] 600 mg PO TID 12/30/15 Lisinopril 20 mg PO DAILY 03/06/17 Aspirin/Acetaminophen/Caffeine [Excedrin Migraine] 1 tab PO Q6HRS 11/15/18 diazePAM [Valium] 2 mg PO DAILY 11/15/18 diphenhydrAMINE HCL [Benadryl] 25 mg PO Q6HRS 11/15/18 Ciprofloxacin [Cipro] 500 mg PO BID #10 tab 06/23/19 Additional Instructions: the patient is 58-year-old female presenting with right lower quadrant pain for the last 3 days. Source of this is not entirely certain. Laboratory work and CT scan are reassuring. It is possible that the patient may have pass ed a small kidney stone within the last few days as she does have some hematuria and mild leukocytosis. The patient will be placed on ciprofloxacin for a mild cystitis. It is also possible that this may be primarily musculoskeletal in nature. If that is the case then it should improve over the next week on its own. The patient is to follow back up with her primary care doctor towards the end of the week. ER warnings were given.
[2019-06-23 13:47] VITALS: BP 116/88; TEMP 97.4; O2SAT 100
== END 2019-06-23 13:40 | disposition home or self-care (01) ==
LOC: ER 11:23
DX: N30.01 Acute cystitis with hematuria (principal); E11.9 Type 2 diabetes mellitus without complications; I10 Essential (primary) hypertension; Z87.442 Personal history of urinary calculi; Z87.891 Personal history of nicotine dependence; Z79.82 Long term (current) use of aspirin; Z79.899 Other long term (current) drug therapy; Z90.49 Acquired absence of other specified parts of digestive tract

== ENCOUNTER 2020-08-05 14:39 | Emergency (ER) | payer MEDICARE ==
[2020-08-05 14:56] VITALS: TEMP 98.1
--- NOTE | 2020-08-05 15:18 | RAD ---
EXAM DESCRIPTION: Chest,2 Views CLINICAL HISTORY: 59 years Female, fall with rt rib pain and sob COMPARISON: 13 November 2017 TECHNIQUE: PA/lateral FINDINGS: A poor inspiratory effect is observed. Left basilar atelectatic type lung disease is observed. The heart is within range of normal. No pleural fluid is seen. Degenerative changes are seen in the thoracic spine. No pneumothorax is detected. IMPRESSION: A poor inspiratory effect is observed with left basilar atelectatic type lung disease. Electronically signed by: Fidel Escobar MD 08/05/2020 3:17 PM [facility]
--- NOTE | 2020-08-05 15:21 | RAD ---
EXAM DESCRIPTION: Ribs,Right 2 Views CLINICAL HISTORY: fall with rt rib pain and sob COMPARISON: 2019 TECHNIQUE: Right rib detail 2 views FINDINGS: No pneumothorax is detected. A fracture of the anterior seventh right rib is observed. IMPRESSION: Fracture the anterior right seventh rib is demonstrated. Electronically signed by: Fidel Escobar MD 08/05/2020 3:19 PM [facility]
[2020-08-05] MEDS ORDERED: CYCLOBENZAPRINE HCL 5 MG TAB PO ONE (15:22)
[2020-08-05] MEDS ORDERED: predniSONE 20 MG TAB PO ONE (15:22)
[2020-08-05] MEDS ORDERED: AMOXICILLIN & POT CLAVULANATE 875 MG TAB PO ONE (15:22)
[2020-08-05] MEDS ORDERED: KETOROLAC TROMETHAMINE INJ 30 MG/ML VIAL IM ONE (15:23)
--- NOTE | 2020-08-05 15:33 | ED.PDOC ---
History of Present Illness - General Chief Complaint: Trauma Stated Complaint: right rib pain from fall yesterday Time Seen by Provider: 08/05/20 14:52 Source: patient Exam Limitations: no limitations - History of Present Illness Initial Comments: Fall and hit her anterior rib cage about 3 days ago. She is having pain with taking deep breaths and some mild shortness of breath. No fever. No productive cough. It hurts to move and hurts to breathe. No syncope. No back pain. Mild visible bruising along the rib cage just below the right breast. No crepitus. No palpable deformity. Timing/Duration: other - 2 days Severity: moderate Improving Factors: immobilization Worsening Factors: movement Associated Symptoms: malaise, shortness of breath Allergies/Adverse Reactions: Allergies NO KNOWN ALLERGY Allergy (Verified 08/05/20 14:56) Home Medications: Ambulatory Orders Gabapentin [Neurontin] 600 mg PO TID 12/30/15 Lisinopril 20 mg PO DAILY 03/06/17 Aspirin/Acetaminophen/Caffeine [Excedrin Migraine] 1 tab PO Q6HRS 11/15/18 diazePAM [Valium] 2 mg PO DAILY 11/15/18 diphenhydrAMINE HCL [Benadryl] 25 mg PO Q6HRS 11/15/18 Ciprofloxacin [Cipro] 500 mg PO BID #10 tab 06/23/19 Amoxicillin & Pot Clavulanate [Augmentin Tab] 875 mg PO BID #14 tab 08/05/20 Cyclobenzaprine HCl [Flexeril] 5 mg PO TID PRN #30 tab 08/05/20 predniSONE [Prednisone] 20 mg PO DAILY #5 tab 08/05/20 Review of Systems - Review of Systems Constitutional: States: malaise EENTM: States: no symptoms reported Respiratory: States: short of breath Cardiology: States: chest pain Gastrointestinal/Abdominal: States: no symptoms reported Genitourinary: States: no symptoms reported Musculoskeletal: States: no symptoms reported, see HPI Skin: States: no symptoms reported Neurological: States: no symptoms reported Endocrine: States: no symptoms reported All other Systems: No Change from Baseline Past Medical History (General) - Patient Medical History Hx Seizures: No Hx Stroke: No Hx Dementia: No Hx Asthma: No Hx of COPD: No Hx Cardiac Disorders: No Hx Congestive Heart Failure: No Hx Pacemaker: No Hx Hypertension: Yes Hx Thyroid Disease: No Hx Diabetes: Yes - FSBS 107 Hx Gastroesophageal Reflux: No Hx Renal Disease: Yes - stones Hx Cancer: No Hx of HIV: No Hx Hepatitis C: No Hx MRSA: No Surgical History: appendectomy, cholecystectomy - Vaccination History Hx Tetanus, Diphtheria Vaccination: No Hx Influenza Vaccination: No Hx Pneumococcal Vaccination: No - Social History Hx Tobacco Use: Yes Hx Alcohol Use: No Hx Substance Use: No Hx Substance Use Treatment: No Hx Depression: No - Female History Patient is a Female of Child Bearing Age (10 -59 yrs old): No Patient : No Family Medical History - Family History Father Living Status: Cause of : cad /mi age 76 Hx Family Asthma: No Hx Family Congestive Heart Failure: No Hx Family Hypertension: Yes Hx Family Stroke: No Hx Cardiac Disease: Yes - parents Hx Family Diabetes: Yes - children Hx Family Cancer: Yes - brast-sisters Mother Family History: No Known Living Status: Hx Family Hypertension: Yes Hx Cardiac Disease: Yes Hx Family Diabetes: Yes Hx Family Cancer: Yes - breast Physical Exam - Physical Exam General Appearance: Alert, Other - Uncomfortable Eye Exam: bilateral normal Ears, Nose, Throat: hearing grossly normal, normal pharynx Neck: full range of motion, supple Respiratory: no respiratory distress, no accessory muscle use, rales - Anterior lower bilateral chest wall discomfort to palpation. 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 The patient has a cracked right seventh rib anteriorly. She also has atelectasis versus infiltrate towards the left lower lobe. She is going to be placed on Augmentin for the next 7 days. She does need to do deep breathing exercises and make her self cough in order to prevent collection that would increase black with pneumonia. The patient is not hypoxic. She will be written for Flexeril as a muscle relaxer and prednisone to help reduce inflammation for the next few days. Topical heat may prove bene ficial. ER warnings were given for any significant worsening. edith montesinos [phone] - Results/Orders Results/Orders: X-ray series show no pneumothorax. She does have a mild seventh anterior rib fracture on the right. There is atelectasis versus infiltrate in the left lower lung field. Departure - Departure Clinical Impression: Rib fracture Qualifiers: Encounter type: initial encounter Rib fracture type: single rib Fracture type: closed Laterality: right Qualified Code(s): S22.31XA - Fracture of one rib, right side, initial encounter for closed fracture Disposition: Discharge to Home or Self Care Condition: Fair Departure Forms: ED Discharge - Pt. Copy, Patient Portal Self Enrollment Instructions: DI for Trauma, Rib Fracture or Bruised Rib ED Diet: regular diet Activity: increase activity as tolerated Referrals: SHELLY CARVER [Primary Care Provider] - 1-2 Weeks Prescriptions: Amoxicillin & Pot Clavulanate [Augmentin Tab] 875 mg PO BID #14 tab Cyclobenzaprine HCl [Flexeril] 5 mg PO TID PRN #30 tab PRN Reason: Muscle Spasms predniSONE [Prednisone] 20 mg PO DAILY #5 tab Home Medications: Ambulatory Orders Gabapentin [Neurontin] 600 mg PO TID 12/30/15 Lisinopril 20 mg PO DAILY 03/06/17 Aspirin/Acetaminophen/Caffeine [Excedrin Migraine] 1 tab PO Q6HRS 11/15/18 diazePAM [Valium] 2 mg PO DAILY 11/15/18 diphenhydrAMINE HCL [Benadryl] 25 mg PO Q6HRS 11/15/18 Ciprofloxacin [Cipro] 500 mg PO BID #10 tab 06/23/19 Amoxicillin & Pot Clavulanate [Augmentin Tab] 875 mg PO BID #14 tab 08/05/20 Cyclobenzaprine HCl [Flexeril] 5 mg PO TID PRN #30 tab 08/05/20 predniSONE [Prednisone] 20 mg PO DAILY #5 tab 08/05/20 Additional Instructions: The patient is a 59-year-old female presented emergency room secondary to chest pain and mild shortness of breath after having fallen and impacted her anterior lower chest wall several days ago. The patient has a cracked right seventh rib anteriorly. She also has atelectasis versus infiltrate towards the left lower lobe. She is going to be placed on Augmentin for the next 7 days. She does need to do deep breathing exercises and make her self cough in order to prevent collection that would increase black with pneumonia. The patient is not hypoxic. She will be written for Flexeril as a muscle relaxer and prednisone to help reduce inflammation for the next few days. Topical heat may prove beneficial. ER warnings were given for any significant worsening.
[2020-08-05 16:22] VITALS: BP 139/87; O2SAT 97
== END 2020-08-05 16:00 | disposition home or self-care (01) ==
LOC: ER 14:39
DX: S22.31XA Fracture of one rib, right side, initial encounter for closed fracture (principal); R06.02 Shortness of breath; I10 Essential (primary) hypertension; E11.9 Type 2 diabetes mellitus without complications; Z87.891 Personal history of nicotine dependence; W01.0XXA Fall on same level from slipping, tripping and stumbling without subsequent striking against object, initial encounter; Y92.9 Unspecified place or not applicable
CPT/HCPCS: 71046; 71100; J1885; J7512